=== PATIENT | female | born 1965 | race Hispanic/Latino ===

== ENCOUNTER 2018-08-16 17:54 | Inpatient (IN) | payer OTHER ==
[~2018-08-16] VITALS: Ht 152.4 cm; Wt 79.2 kg
[2018-08-16] MEDS ORDERED: FAMOTIDINE/PF 20 MG/2 ML VIAL IV ONE (18:29)
[2018-08-16] MEDS ORDERED: ONDANSETRON HCL 4 MG/2 ML VIAL ONE ×2 (18:29→19:20)
[2018-08-16 18:34] LABS: BASOPHILS % (AUTO) 0.3 % (0.0-5.0); EOSINOPHILS % (AUTO) 4.1 % (0.0-8.0); HEMATOCRIT 41.3 % (36-48); LYMPHOCYTES % (AUTO) 30.1 % (21.0-51.0); MEAN CORPUSCULAR HGB CONC 33.9 g/dL (32.0-36.0); MEAN CORPUSCULAR VOLUME 79.5 fL (79-99); MONOCYTES % (AUTO) 7.7 % (3.0-13.0); NEUTROPHILS % (AUTO) 57.8 % (40.0-77.0); NUCLEATED RED BLOOD CELLS 0.1 % (0.0-0.19); PLATELET COUNT (AUTO) 159 K/uL (130-400); RED CELL DISTRIBUTION WIDTH 15.6 % (11.0-15.5); WHITE BLOOD COUNT (AUTO) 7.4 K/uL (4.8-10.8)
[2018-08-16 18:48] LABS: CREATININE 0.8 mg/dL (0.5-1.5); POTASSIUM 4.2 mmol/L (3.5-5.1)
[2018-08-16 18:50] LABS: INR 0.95 (0.85-1.15); PARTIAL THROMBOPLASTIN TIME 27.1 SEC (26.3-35.5)
[2018-08-16 18:59] LABS: ALBUMIN 3.4 g/dL (3.5-5.0); BILIRUBIN,DIRECT 0.1 mg/dL (0.0-0.3); BILIRUBIN,TOTAL 0.4 mg/dL (0.2-1.0)
[2018-08-16 19:08] LABS: APPEARANCE,URINE Clear (CLEAR); BILIRUBIN,URINE Negative (NEGATIVE); COLOR,URINE Yellow (YELLOW); GLUCOSE, URINE (UA) Negative (NEGATIVE); KETONES,URINE Negative (NEGATIVE); LEUKOCYTE ESTERASE ,URINE Trace (NEGATIVE); NITRATE,URINE Negative (NEGATIVE); OCCULT BLOOD,URINE Negative (NEGATIVE); PH,URINE 6.5 (5.0-8.0); PROTEIN,URINE Negative (NEGATIVE)
[2018-08-16] MEDS ORDERED: LIDOCAINE HCL 2% VISCOUS 15 ML UDCUP ONE (19:19)
[2018-08-16] MEDS ORDERED: MAG HYDROX/AL HYDROX/SIMETH ES 30 ML SUSP UDCUP ONE (19:20)
[2018-08-16 19:22] LABS: BACTERIA,URINE Few /HPF (None Seen); MUCUS,URINE Few LPF (None Seen); RBC,URINE None Seen /HPF (0-1); WBC,URINE 0-1 /HPF (0-1)
[2018-08-16] MEDS ORDERED: PROMETHAZINE HCL 25 MG/ML 1ML AMPULE IM ONE (20:04)
[2018-08-16] MEDS ORDERED: SODIUM CHLORIDE 0.9% 1000ML 1,000 ML IV ONE (20:04)
[2018-08-16] MEDS ORDERED: DICYCLOMINE HCL 10 MG/ML 2ML AMP IM ONE (20:29)
[2018-08-16] MEDS ORDERED: MORPHINE SULFATE 2 MG/ML 1ML SYG ONE (20:30)
[2018-08-16] MEDS ORDERED: MORPHINE SULFATE 2 MG/ML 1ML SYG IV PRN (21:15)
[2018-08-16] MEDS ORDERED: MORPHINE SULFATE 4 MG/1ML SYG ONE (21:43)
[2018-08-16 21:54] LABS: TROPONIN I 0.05 ng/mL (0.00-0.06)
[2018-08-16 23:10] VITALS: BP 143/68
[2018-08-16] MEDS: SODIUM CHLORIDE 0.9% 1000ML 1,000 ML IV SCH (23:40)
[2018-08-17] MEDS: ONDANSETRON HCL 4 MG/2 ML VIAL IVP PRN (02:12)
[2018-08-17] MEDS ORDERED: KETOROLAC TROMETHAMINE 30MG/ML ONE (03:23)
[2018-08-17 03:50] VITALS: BP 153/64
[2018-08-17 04:37] LABS: BASOPHILS % (AUTO) 0.6 % (0.0-5.0); EOSINOPHILS % (AUTO) 0.1 % (0.0-8.0); HEMATOCRIT 39.4 % (36-48); LYMPHOCYTES % (AUTO) 8.5 % (21.0-51.0); MEAN CORPUSCULAR HEMOGLOBIN 26.9 pg (27.0-33.0); MEAN CORPUSCULAR HGB CONC 34.1 g/dL (32.0-36.0); MEAN CORPUSCULAR VOLUME 78.9 fL (79-99); MONOCYTES % (AUTO) 2.8 % (3.0-13.0); PLATELET COUNT (AUTO) 151 K/uL (130-400); RED BLOOD CELL COUNT(AUTO) 4.99 MIL/uL (4.00-5.50); RED CELL DISTRIBUTION WIDTH 15.1 % (11.0-15.5); WHITE BLOOD COUNT (AUTO) 12.9 K/uL (4.8-10.8)
[2018-08-17 05:01] LABS: ALBUMIN 3.2 g/dL (3.5-5.0); BILIRUBIN,TOTAL 0.5 mg/dL (0.2-1.0); CREATININE 0.8 mg/dL (0.5-1.5); TOTAL PROTEIN, SERUM 7.8 g/dL (6.0-8.3)
[2018-08-17] MEDS ORDERED: PNEUMOCOCCAL VACCINE POLYVALENT 0.5 ML/VIAL [PPV] IM ONE (06:30)
[2018-08-17] MEDS: KETOROLAC TROMETHAMINE 30MG/ML IV SCH (06:51)
[2018-08-17 08:00] VITALS: BP 125/68
[2018-08-17] MEDS: SODIUM CHLORIDE 0.9% 1000ML 1,000 ML IV SCH ×3 (09:52→23:31)
[2018-08-17] MEDS: PANTOPRAZOLE SODIUM 40 MG TABLET.DR PO SCH (09:57)
[2018-08-17] MEDS: METRONIDAZOLE 500 MG TABLET PO SCH ×2 (09:57→20:40)
[2018-08-17] MEDS: CLARITHROMYCIN 500 MG TABLET PO SCH ×2 (09:57→20:40)
[2018-08-17] MEDS: ENOXAPARIN SODIUM 40 MG/0.4 ML SYRINGE SQ SCH (09:59)
[2018-08-17 11:55] VITALS: BP 110/65
[2018-08-17] MEDS ORDERED: MORPHINE SULFATE 2 MG/ML 1ML SYG IV PRN (13:15)
[2018-08-17 15:49] VITALS: BP 119/71
[2018-08-17] MEDS ORDERED: ACETAMINOPHEN 325 MG TAB ONE (18:32)
[2018-08-17 19:44] VITALS: BP 113/67
[2018-08-17 23:23] VITALS: BP 136/74
[2018-08-17] MEDS: ACETAMINOPHEN 325 MG TAB PO PRN (23:37)
[2018-08-18] MEDS: KETOROLAC TROMETHAMINE 30MG/ML IV SCH (03:00)
[2018-08-18 04:00] VITALS: BP 121/73
[2018-08-18 04:48] LABS: BASOPHILS % (AUTO) 0.3 % (0.0-5.0); EOSINOPHILS % (AUTO) 0.5 % (0.0-8.0); HEMATOCRIT 36.7 % (36-48); LYMPHOCYTES % (AUTO) 15.5 % (21.0-51.0); MEAN CORPUSCULAR HEMOGLOBIN 26.7 pg (27.0-33.0); MEAN CORPUSCULAR HGB CONC 33.6 g/dL (32.0-36.0); MEAN CORPUSCULAR VOLUME 79.5 fL (79-99); MONOCYTES % (AUTO) 6.9 % (3.0-13.0); NEUTROPHILS % (AUTO) 76.8 % (40.0-77.0); PLATELET COUNT (AUTO) 111 K/uL (130-400); RED BLOOD CELL COUNT(AUTO) 4.61 MIL/uL (4.00-5.50); WHITE BLOOD COUNT (AUTO) 8.7 K/uL (4.8-10.8)
[2018-08-18 04:50] LABS: CREATININE 0.8 mg/dL (0.5-1.5); POTASSIUM 3.6 mmol/L (3.5-5.1)
[2018-08-18 07:00] VITALS: BP 134/80
[2018-08-18] MEDS: METRONIDAZOLE 500 MG TABLET PO SCH ×2 (09:32→21:07)
[2018-08-18] MEDS: CLARITHROMYCIN 500 MG TABLET PO SCH (09:32)
[2018-08-18] MEDS: PANTOPRAZOLE SODIUM 40 MG TABLET.DR PO SCH (09:33)
[2018-08-18] MEDS: ENOXAPARIN SODIUM 40 MG/0.4 ML SYRINGE SQ SCH (09:33)
[2018-08-18 11:00] VITALS: BP 139/85
[2018-08-18] MEDS ORDERED: CLAR500T PO (11:08)
[2018-08-18] MEDS ORDERED: ESOM20CA39 PO (11:08)
[2018-08-18] MEDS ORDERED: METR500T4 PO (11:08)
[2018-08-18] MEDS: ACETAMINOPHEN 325 MG TAB PO PRN (12:10)
[2018-08-18 16:00] VITALS: BP 116/71
[2018-08-18] MEDS ORDERED: DIATR MEGLU/DIATRIZOATE SODIUM 30 ML BOTTLE ONE (16:02)
[2018-08-18] MEDS ORDERED: POTASSIUM CHLORIDE 20 MEQ ERTAB PO PRN (17:45)
[2018-08-18] MEDS ORDERED: POTASSIUM CHLORIDE 10% ELIXIR 20 MEQ/15 ML UDCUP PO PRN (17:45)
[2018-08-18] MEDS ORDERED: IOHEXOL-350 75 ML VIAL IV ONE (18:34)
[2018-08-18 20:00] VITALS: BP 139/79
[2018-08-19] VITALS (7 sets, daily range): BP systolic 90–124; BP diastolic 55–86
[2018-08-19] MEDS: CLARITHROMYCIN 500 MG TABLET PO SCH ×2 (00:03→08:47)
[2018-08-19] MEDS: ONDANSETRON HCL 4 MG/2 ML VIAL IVP PRN (00:03)
[2018-08-19] MEDS: PANTOPRAZOLE SODIUM 40 MG TABLET.DR PO SCH (08:47)
[2018-08-19] MEDS: METRONIDAZOLE 500 MG TABLET PO SCH (08:47)
[2018-08-19] MEDS: ACETAMINOPHEN 325 MG TAB PO PRN (08:48)
[2018-08-19] MEDS: ENOXAPARIN SODIUM 40 MG/0.4 ML SYRINGE SQ SCH (08:50)
[2018-08-19] MEDS ORDERED: AZITHROMYCIN 500MG+NS 250ML 250 ML IV SCH (11:00)
[2018-08-19 11:39] LABS: BASOPHILS % (AUTO) 0.3 % (0.0-5.0); EOSINOPHILS % (AUTO) 0.1 % (0.0-8.0); HEMATOCRIT 36.2 % (36-48); LYMPHOCYTES % (AUTO) 11.1 % (21.0-51.0); MEAN CORPUSCULAR HEMOGLOBIN 26.8 pg (27.0-33.0); MEAN CORPUSCULAR HGB CONC 33.7 g/dL (32.0-36.0); MEAN CORPUSCULAR VOLUME 79.5 fL (79-99); MONOCYTES % (AUTO) 7.9 % (3.0-13.0); NEUTROPHILS % (AUTO) 80.6 % (40.0-77.0); PLATELET COUNT (AUTO) 136 K/uL (130-400); RED BLOOD CELL COUNT(AUTO) 4.55 MIL/uL (4.00-5.50); RED CELL DISTRIBUTION WIDTH 16.3 % (11.0-15.5); WHITE BLOOD COUNT (AUTO) 12.3 K/uL (4.8-10.8)
[2018-08-19 11:53] LABS: ALBUMIN 2.5 g/dL (3.5-5.0); CREATININE 0.8 mg/dL (0.5-1.5); POTASSIUM 3.1 mmol/L (3.5-5.1); TOTAL PROTEIN, SERUM 6.9 g/dL (6.0-8.3)
[2018-08-19] MEDS: SODIUM CHLORIDE 0.9% 1000ML 1,000 ML IV SCH (14:49)
[2018-08-19] MEDS ORDERED: KETOROLAC TROMETHAMINE 30MG/ML IM SCH (17:00)
[2018-08-19] MEDS: UNASYN 3GM+NS 100ML 100 ML IV SCH (17:30)
[2018-08-19] MEDS ORDERED: METRONIDAZOLE 500MG/100ML BAG 100 ML IV SCH (21:00)
[2018-08-20] MEDS: UNASYN 3GM+NS 100ML 100 ML IV SCH ×4 (00:07→17:38)
[2018-08-20] MEDS: LACTATED RINGERS 1000ML 1,000 ML IV SCH ×4 (00:07→19:35)
[2018-08-20 04:00] VITALS: BP 106/61
[2018-08-20 05:41] LABS: BASOPHILS % (AUTO) 0.3 % (0.0-5.0); EOSINOPHILS % (AUTO) 2.2 % (0.0-8.0); LYMPHOCYTES % (AUTO) 14.1 % (21.0-51.0); MEAN CORPUSCULAR HEMOGLOBIN 26.7 pg (27.0-33.0); MEAN CORPUSCULAR HGB CONC 33.4 g/dL (32.0-36.0); MONOCYTES % (AUTO) 7.6 % (3.0-13.0); NEUTROPHILS % (AUTO) 75.8 % (40.0-77.0); PLATELET COUNT (AUTO) 104 K/uL (130-400); RED BLOOD CELL COUNT(AUTO) 4.24 MIL/uL (4.00-5.50); WHITE BLOOD COUNT (AUTO) 7.7 K/uL (4.8-10.8)
[2018-08-20 05:47] LABS: CREATININE 0.7 mg/dL (0.5-1.5); POTASSIUM 3.1 mmol/L (3.5-5.1)
[2018-08-20 08:00] VITALS: BP 119/72
[2018-08-20] MEDS: PANTOPRAZOLE 40 MG/VIAL IVP SCH (09:42)
[2018-08-20] MEDS: ENOXAPARIN SODIUM 40 MG/0.4 ML SYRINGE SQ SCH (09:47)
[2018-08-20] MEDS ORDERED: AZITHROMYCIN 500MG+NS 250ML 250 ML IV SCH (11:00)
[2018-08-20 12:00] VITALS: BP 133/80
[2018-08-20] MEDS: POTASSIUM CHLORIDE 20MEQ/100ML 100 ML IV PRN ×2 (13:14→18:49)
[2018-08-20] MEDS: LIDOCAINE HCL-MPF 1% 2ML VIAL IVP PRN ×2 (13:14→18:49)
[2018-08-20] MEDS: KETOROLAC TROMETHAMINE 15MG/ML IM PRN (13:17)
[2018-08-20 16:00] VITALS: BP 123/78
[2018-08-20] MEDS: SODIUM CHLORIDE 0.9% 1000ML 1,000 ML IV SCH (19:35)
[2018-08-20 20:00] VITALS: BP 145/70
[2018-08-20 23:50] VITALS: BP 155/79
[2018-08-21] VITALS (21 sets, daily range): BP systolic 101–148; BP diastolic 59–85
[2018-08-21] MEDS: UNASYN 3GM+NS 100ML 100 ML IV SCH ×5 (00:01→23:45)
[2018-08-21] MEDS: LACTATED RINGERS 1000ML 1,000 ML IV SCH ×3 (01:00→17:00)
[2018-08-21] MEDS: SODIUM CHLORIDE 0.9% 1000ML 1,000 ML IV SCH ×3 (01:10→21:10)
[2018-08-21] MEDS: ACETAMINOPHEN 325 MG TAB PO PRN (01:24)
[2018-08-21 04:39] LABS: BASOPHILS % (AUTO) 0.5 % (0.0-5.0); EOSINOPHILS % (AUTO) 2.2 % (0.0-8.0); HEMATOCRIT 33.4 % (36-48); MEAN CORPUSCULAR HEMOGLOBIN 27.3 pg (27.0-33.0); MEAN CORPUSCULAR HGB CONC 34.3 g/dL (32.0-36.0); MEAN CORPUSCULAR VOLUME 79.6 fL (79-99); MONOCYTES % (AUTO) 7.8 % (3.0-13.0); NEUTROPHILS % (AUTO) 78.5 % (40.0-77.0); PLATELET COUNT (AUTO) 141 K/uL (130-400); RED BLOOD CELL COUNT(AUTO) 4.19 MIL/uL (4.00-5.50); RED CELL DISTRIBUTION WIDTH 15.7 % (11.0-15.5); WHITE BLOOD COUNT (AUTO) 6.3 K/uL (4.8-10.8)
[2018-08-21 04:54] LABS: CREATININE 0.7 mg/dL (0.5-1.5); POTASSIUM 3.3 mmol/L (3.5-5.1)
[2018-08-21] MEDS: POTASSIUM CHLORIDE 20MEQ/100ML 100 ML IV PRN ×2 (05:54→11:55)
[2018-08-21] MEDS: ENOXAPARIN SODIUM 40 MG/0.4 ML SYRINGE SQ SCH (09:00)
[2018-08-21] MEDS: PANTOPRAZOLE 40 MG/VIAL IVP SCH ×2 (10:07→10:08)
[2018-08-21] MEDS ORDERED: BUPIVACAINE/EPI/PF 0.5% 30ML VIAL IJ ONE (11:09)
[2018-08-21] MEDS ORDERED: IOHEXOL-350 50ML VIAL IV ONE (12:08)
[2018-08-21] MEDS ORDERED: DEXAMETHASONE SOD PHOSPHATE 10MG/ML 1ML VIAL ONE ×2 (12:15→12:44)
[2018-08-21] MEDS ORDERED: ONDANSETRON HCL 4 MG/2 ML VIAL ONE ×2 (12:15→12:44)
[2018-08-21] MEDS ORDERED: FENTANYL CITRATE PF 50 MCG/1 ML 2ML VIAL ONE ×2 (12:15→12:39)
[2018-08-21] MEDS ORDERED: LIDOCAINE PF 2% 5ML ABBOJECT ONE (12:15)
[2018-08-21] MEDS ORDERED: NEOSTIGMINE 5MG/5ML SYR IV ONE (12:16)
[2018-08-21] MEDS ORDERED: ROCURONIUM 10MG/1ML SYR 10 MG/ML ML ONE (12:16)
[2018-08-21] MEDS ORDERED: PROPOFOL 10 MG/ML 20ML VIAL IV ONE (12:16)
[2018-08-21] MEDS ORDERED: MIDAZOLAM HCL 1 MG/ML 2ML VIAL ONE (12:16)
[2018-08-21] MEDS ORDERED: METOCLOPRAMIDE 10 MG/2 ML VIAL ONE (12:44)
[2018-08-21] MEDS ORDERED: MEPERIDINE-PF 25 MG/ML SYG ONE (14:08)
[2018-08-21] MEDS: ONDANSETRON HCL 4 MG/2 ML VIAL IVP PRN (14:16)
[2018-08-21] MEDS ORDERED: ACETAMINOPHEN 325 MG TAB PO PRN (15:00)
[2018-08-21] MEDS ORDERED: TRAMADOL HCL 50 MG TABLET PO PRN ×2 (15:00)
[2018-08-21] MEDS: KETOROLAC TROMETHAMINE 15MG/ML IM PRN (23:44)
[2018-08-21] MEDS: DOCUSATE SODIUM 100 MG CAP PO SCH (23:45)
[2018-08-22 03:02] VITALS: BP 128/78
[2018-08-22 04:36] LABS: HEMATOCRIT 35.9 % (36-48); MEAN CORPUSCULAR HEMOGLOBIN 26.5 pg (27.0-33.0); MEAN CORPUSCULAR HGB CONC 33.2 g/dL (32.0-36.0); MEAN CORPUSCULAR VOLUME 79.8 fL (79-99); PLATELET COUNT (AUTO) 163 K/uL (130-400); RED CELL DISTRIBUTION WIDTH 15.8 % (11.0-15.5); WHITE BLOOD COUNT (AUTO) 7.7 K/uL (4.8-10.8)
[2018-08-22 04:48] LABS: ALBUMIN 2.4 g/dL (3.5-5.0); BILIRUBIN,TOTAL 0.3 mg/dL (0.2-1.0); CREATININE 0.7 mg/dL (0.5-1.5); MAGNESIUM 1.8 mg/dL (1.80-2.40); POTASSIUM 4.5 mmol/L (3.5-5.1)
[2018-08-22] MEDS: UNASYN 3GM+NS 100ML 100 ML IV SCH (06:23)
[2018-08-22 07:00] VITALS: BP 137/75
[2018-08-22] MEDS ORDERED: PANTOPRAZOLE SODIUM 40 MG TABLET.DR PO SCH (08:36)
[2018-08-22] MEDS: DOCUSATE SODIUM 100 MG CAP PO SCH (10:22)
[2018-08-22] MEDS: ENOXAPARIN SODIUM 40 MG/0.4 ML SYRINGE SQ SCH (10:24)
[2018-08-22 11:00] VITALS: BP 120/73
== END 2018-08-22 15:15 | disposition home or self-care (01) | DRG 854 ==
LOC: EDH 17:54 → EDHIP 17:55 → 3DH 22:10
PROVIDERS: ADMIT Hospitalist; ATTEND Hospitalist
PROC: BF131ZZ Fluoroscopy of Gallbladder and Bile Ducts using Low Osmolar Contrast (ICD-10-PCS; 2018-08-21)
PROC: 3E0234Z Introduction of Serum, Toxoid and Vaccine into Muscle, Percutaneous Approach (ICD-10-PCS; 2018-08-21)
PROC: 0FT44ZZ Resection of Gallbladder, Percutaneous Endoscopic Approach (ICD-10-PCS; principal; 2018-08-21 12:13)
DX: A41.9 Sepsis, unspecified organism (principal); E44.0 Moderate protein-calorie malnutrition; K80.00 Calculus of gallbladder with acute cholecystitis without obstruction; N39.0 Urinary tract infection, site not specified; B96.81 Helicobacter pylori [H. pylori] as the cause of diseases classified elsewhere; B96.89 Other specified bacterial agents as the cause of diseases classified elsewhere; K29.70 Gastritis, unspecified, without bleeding; E66.9 Obesity, unspecified; E87.6 Hypokalemia; K21.9 Gastro-esophageal reflux disease without esophagitis; K76.0 Fatty (change of) liver, not elsewhere classified; Z68.34 Body mass index [BMI] 34.0-34.9, adult; Z91.018 Allergy to other foods; Z23 Encounter for immunization
CPT/HCPCS: 36415; 71045; 74170; 74300; 76705; 80048; 80053; 80076; 81001; 82550; 82948; 83690; 83735; 83874; 84132; 84484; 85025; 85027; 85610; 85730; 86677; 87040; 88304; 90732; 93005; C1758; C9113; G0008; G0009; J0295; J0456; J0500; J1100; J1650; J1885; J2001; J2175; J2250; J2270; J2405; J2550; J2704; J2710; J2765; J3010; J3480; J3490; J7030; J7120; Q2038; Q9963; Q9967